=== PATIENT | female | born 1985 | race Caucasian/White ===

== ENCOUNTER 2017-05-27 08:42 | Inpatient (IN) | payer OTHER ==
[2017-05-27] MEDS ORDERED: LACTATED RINGERS 1,000 ML IV PRN (09:15)
[2017-05-27] MEDS ORDERED: OXYTOCIN 10000 MU/ML SOL IM PRN (09:15)
[2017-05-27] MEDS ORDERED: METHYLERGONOVINE MALEATE 0.2 MG/ML SOL IM PRN (09:15)
[2017-05-27] MEDS ORDERED: SODIUM CHLORIDE 0.9% FLUSH 10 ML SOL IV SCH (09:15)
[2017-05-27] MEDS ORDERED: NALOXONE HYDROCHLORIDE 0.4 MG/ML SOL IV PRN ×2 (09:15→10:44)
[2017-05-27] MEDS ORDERED: LACTATED RINGERS 1,000 ML IV SCH (09:15)
[2017-05-27] MEDS ORDERED: EPHEDRINE SULFATE 50 MG/ML SOL IV PRN (09:15)
[2017-05-27] MEDS ORDERED: MEPIVACAINE HCL 1% MPF 30 ML SOL INFIL PRN (09:15)
[2017-05-27] MEDS ORDERED: SODIUM CHLORIDE 0.9% FLUSH 10 ML SOL IV PRN (09:15)
[2017-05-27] MEDS ORDERED: FENTANYL 100MCG/2ML SOL IV PRN (09:15)
[2017-05-27] MEDS: LACTATED RINGERS 1,000 ML IV SCH ×3 (09:15→16:00)
[2017-05-27] MEDS ORDERED: DIPHENHYDRAMINE 50 MG/ML SOL IV PRN (09:15)
[2017-05-27] MEDS ORDERED: CARBOPROST 250 MCG/ML SOL IM PRN (09:15)
[2017-05-27] MEDS ORDERED: NALBUPHINE HCL 20 MG/ML SOL IV PRN (09:15)
[2017-05-27 09:27] LABS: BASOPHILS % (AUTO) 1 % (0-3); EOSINOPHILS % (AUTO) 0 % (0-9); HEMATOCRIT 32 % (35-47); MEAN CORPUSCULAR HGB CONC 34.3 gm/dl (32.0-36.0); MEAN CORPUSCULAR VOLUME 90 fL (81-99); MONOCYTES % (AUTO) 4.7 % (0-12); NEUTROPHILS % (AUTO) 72.4 % (37-80)
[2017-05-27] MEDS ORDERED: HYDROXYZINE HYDROCHLORIDE 25 MG/ML SOL IM PRN (10:44)
[2017-05-27] MEDS ORDERED: DIPHENHYDRAMINE 25 MG CAP PO PRN ×2 (10:44→15:05)
[2017-05-27] MEDS ORDERED: DIPHENHYDRAMINE 50 MG/ML SOL IM PRN (10:44)
[2017-05-27] MEDS ORDERED: ONDANSETRON HCL 4 MG/2 ML SOL IV ONE (13:10)
[2017-05-27] MEDS ORDERED: ONDANSETRON HCL 4 MG/2 ML SOL ONE (13:12)
[2017-05-27] MEDS ORDERED: TERBUTALINE SULFATE 1 MG/ML SOL SC ONE (13:30)
[2017-05-27] MEDS ORDERED: TERBUTALINE SULFATE 1 MG/ML SOL ONE (13:30)
[2017-05-27] MEDS ORDERED: MORPHINE SULFATE 0.5 MG/ML SOL ONE (13:37)
[2017-05-27] MEDS ORDERED: CEFAZOLIN SODIUM 1 GM PDS ONE (13:39)
[2017-05-27] MEDS ORDERED: OXYTOCIN 10000 MU/ML SOL ONE ×2 (13:39→14:15)
[2017-05-27] MEDS ORDERED: [UNRECOGNIZED DRUG - OTHER] IV ONE (14:07)
[2017-05-27] MEDS ORDERED: EPHEDRINE SULFATE 50 MG/ML SOL ONE (14:10)
[2017-05-27] MEDS ORDERED: FLEET ENEMA PR PRN (15:05)
[2017-05-27] MEDS ORDERED: KETOROLAC TROMETHAMINE 30 MG/ML SOL IV PRN (15:05)
[2017-05-27] MEDS ORDERED: BISACODYL 10 MG SUP PR PRN (15:05)
[2017-05-27] MEDS ORDERED: TEMAZEPAM 15MG 15 MG CAP PO PRN (15:05)
[2017-05-27] MEDS ORDERED: WITCH HAZEL 1 EA PAD TOP PRN (15:05)
[2017-05-27] MEDS ORDERED: ONDANSETRON HCL 4 MG/2 ML SOL IV PRN (15:05)
[2017-05-27] MEDS ORDERED: BENZOCAINE/MENTHOL 1 SPR TOP PRN (15:05)
[2017-05-27] MEDS ORDERED: METHYLERGONOVINE MALEATE 0.2 MG TAB PO PRN (15:05)
[2017-05-27 17:44] LABS: ABO A; ANTIBODY SCREEN Negative; RH TYPE Positive
[2017-05-27] MEDS ORDERED: CEFAZOLIN SODIUM 1 GM PDS IVP ONE (19:04)
[2017-05-27 19:24] LABS: APPEARANCE,URINE Clear; BILIRUBIN,URINE NEGATIVE (NEGATIVE); COLOR,URINE Yellow; GLUCOSE, URINE (UA) NEGATIVE (NEGATIVE); KETONES,URINE 2+ (NEGATIVE); LEUKOCYTE ESTERASE ,URINE NEGATIVE (NEGATIVE); NITRATE,URINE NEGATIVE (NEGATIVE); OCCULT BLOOD,URINE 2+ (NEG-TRACE); UROBILINOGEN,URINE 0.2 (0.2-1.0 EU)
[2017-05-27 19:40] LABS: WBC,URINE 0-2 (0-5AV/HPF)
[2017-05-27] MEDS ORDERED: CEFAZOLIN (PREMIX) 1 GM 1 GM/50 ML SOL IV SCH (19:55)
[2017-05-27] MEDS ORDERED: CEFAZOLIN (PREMIX) 1 GM 1 GM/50 ML SOL IV ONE (20:29)
[2017-05-27] MEDS: APAP/HYDROCODONE 325/5 TAB PO PRN (20:36)
[2017-05-27] MEDS: DOCUSATE SODIUM 100 MG SGL PO SCH (20:36)
[2017-05-27] MEDS: SODIUM CHLORIDE 0.9% FLUSH 10 ML SOL IV PRN (22:57)
[2017-05-28] MEDS ORDERED: CEFAZOLIN (PREMIX) 1 GM 1 GM/50 ML SOL IV SCH (01:04)
[2017-05-28] MEDS: LACTATED RINGERS 1,000 ML IV SCH ×2 (01:15→08:55)
[2017-05-28] MEDS: APAP/HYDROCODONE 325/5 TAB PO PRN ×4 (07:19→20:54)
[2017-05-28] MEDS: DOCUSATE SODIUM 100 MG SGL PO SCH ×2 (08:43→20:54)
[2017-05-28] MEDS: MULTIVITAMIN2 1 EA TAB PO SCH (08:43)
[2017-05-28] MEDS: FOLIC ACID 1 MG TAB PO SCH (08:43)
[2017-05-28] MEDS ORDERED: PANTOPRAZOLE SODIUM 40 MG ECT PO ONE (11:15)
[2017-05-28] MEDS: PANTOPRAZOLE SODIUM 40 MG ECT PO SCH (11:18)
[2017-05-28] MEDS: IBUPROFEN 600 MG TAB PO PRN ×2 (11:18→17:56)
[2017-05-28] MEDS: SODIUM CHLORIDE 0.9% FLUSH 10 ML SOL IV PRN ×2 (11:18→17:57)
[2017-05-28] MEDS ORDERED: ALUMINUM/MAGNESIUM 30 ML SUS PO PRN (13:18)
[2017-05-28] MEDS ORDERED: ALUMINUM/MAGNESIUM 30 ML SUS ONE (13:32)
[2017-05-28] MEDS: FERROUS GLUCONATE 324 MG TAB PO SCH ×2 (13:34→20:55)
[2017-05-29] MEDS: APAP/HYDROCODONE 325/5 TAB PO PRN ×4 (02:42→18:30)
[2017-05-29] MEDS: IBUPROFEN 600 MG TAB PO PRN ×3 (02:42→18:30)
[2017-05-29] MEDS: LACTATED RINGERS 1,000 ML IV SCH (02:48)
[2017-05-29] MEDS ORDERED: PANTOPRAZOLE SODIUM 40 MG ECT PO ONE (08:19)
[2017-05-29] MEDS: FOLIC ACID 1 MG TAB PO SCH (08:25)
[2017-05-29] MEDS: DOCUSATE SODIUM 100 MG SGL PO SCH ×2 (08:25→21:01)
[2017-05-29] MEDS: PANTOPRAZOLE SODIUM 40 MG ECT PO SCH (08:25)
[2017-05-29] MEDS: MULTIVITAMIN2 1 EA TAB PO SCH (08:25)
[2017-05-29] MEDS: FERROUS GLUCONATE 324 MG TAB PO SCH ×2 (08:26→21:01)
[2017-05-29 13:39] VITALS: RESP 16
[2017-05-30 05:16] VITALS: BP 118/76; PULSE 60; TEMP 97.4; O2SAT 97
[2017-05-30] MEDS ORDERED: PANTOPRAZOLE SODIUM 40 MG ECT PO ONE (08:51)
[2017-05-30] MEDS: FERROUS GLUCONATE 324 MG TAB PO SCH (08:53)
[2017-05-30] MEDS: MULTIVITAMIN2 1 EA TAB PO SCH (08:53)
[2017-05-30] MEDS: PANTOPRAZOLE SODIUM 40 MG ECT PO SCH (08:53)
[2017-05-30] MEDS: FOLIC ACID 1 MG TAB PO SCH (08:53)
[2017-05-30] MEDS: DOCUSATE SODIUM 100 MG SGL PO SCH (08:53)
[2017-05-30] MEDS: IBUPROFEN 600 MG TAB PO PRN (08:58)
== END 2017-05-30 10:55 | disposition home or self-care (01) | DRG 766 ==
LOC: OBSVTOIN 08:42 → OB 08:42
PROVIDERS: ADMIT Family Medicine; ATTEND Family Medicine
PROC: 10D00Z1 Extraction of Products of Conception, Low, Open Approach (ICD-10-PCS; principal; 2017-05-27 14:00)
DX: O64.0XX0 Obstructed labor due to incomplete rotation of fetal head, not applicable or unspecified (principal); D64.9 Anemia, unspecified; Z3A.38 38 weeks gestation of pregnancy; Z37.0 Single live birth
CPT/HCPCS: 36415; 59025; 81001; 85018; 85025; 86850; 86900; 86901; 99070; J0670; J0690; J1885; J2274; J2405; J2590; J3010; J3105